=== PATIENT | female | born 1945 | race Caucasian/White ===

== ENCOUNTER → 2016-05-17 | Day surgery (SDC) | payer OTHER, MEDICARE ==
[~2016-05-17] VITALS: Ht 170.2 cm; Wt 79.4 kg
--- NOTE | 2016-05-17 11:46 | Operative Report ---
Operative/Inv Procedure Report Surgery Date: 05/17/16 Name of Procedure: cytocele repair with mesh and urethral sling and cystoscopy Pre-Operative Diagnosis: cystocele grade 3-4 and occult stress incontinence Post-Operative Diagnosis: same Estimated Blood Loss: 200cc Surgeon/Therapeutic Program Worker: RADHA JERONIMO MD Anesthesia: laryngeal mask airway Implants: vaginal mesh Drains: 16fr tinoco Specimens: none Complications: none Condition: stable Operative Indication: cystocele grade 34 symptomatic and occult stres incontinence Operative/Procedure Note Note: This an operative dictation on patient Ashia Schulz. She is identified in the holding area and consented for cystocele repair with mesh and possible urethral sling and cystoscopy. The complications and possible risks with vaginal mesh were discussed in detail. Risks benefits and alternatives of the surgery were given and all questions were answered. Patient was taken to the operating placed on the operating table in supine position. Timeout was performed. Lower extremity SCDs were placed bilaterally and started. IV antibiotics were infused and LMA anesthesia was given. Placed in the dorsal lithotomy position and prepped and draped in the standard sterile fashion. Tinoco catheter was placed and the bladder was drained and the Tinoco was placed on the abdomen. The [place] retractor with 6 stays were then placed to allow for vaginal vault visualization. 1% lidocaine with epinephrine was infiltrated into the anterior vaginal wall. The vaginal melgoza were dissected free from the cystocele taking care not to injure the bladder. The dissection was bluntly taken down to the retropubic space to the sacrospinous ligament bilaterally. The Uterus then was then used to place the Prolene sutures to the sacrospinous ligament on the patient's right and left side. This was followed by 2 Prolene sutures at the arcus tendineus on the right and left side with the UO as well. The Restoril mesh was then placed through the Prolene sutures. The proximal and distal portions of the mesh were secured with 2-0 Vicryl sutures at the bladder neck and the cervix. The mesh was seen to be in good position. Surgicel was placed into the retropubic perineal patient's left and right side for residual oozing. Indeed methylene blue was then given at this time to check for the patency of the ureters. A cystoscopy was performed and the bladder was globally inspected. There were no abnormalities appreciated. The ureteral orifices were easily identified and blue efflux was seen emanating from both orifices with good force. The bladder was emptied with Tinoco was placed back into the bladder. The anterior vaginal wall was closed with 2-0 Vicryl suture running locking every third suture. Attention was then turned to the urethral sling portion of the case. With the bladder full it was checked to see if she did experience incontinence with a Cred maneuver. She did leak large amounts of urine. 1% lidocaine with epinephrine was infiltrated into the anterior vaginal wall suburethrally. Incision was made and the vaginal flaps are created taking care not to injure the urethra. Sharp and blunt dissection was carried out to the retropubic space. The UltraSling kit was then opened and the trochars that are provided was used to place the sling and the obturator fascia on the patient's right and left side. It was seen to be in a good tension-free manner and the Prolene suture was cut. It was copiously irrigated with bacitracin irrigation. Incision was closed with a running locking 3-0 Vicryl suture. Cystoscopy was performed again and there were no injuries to the bladder or the urethra. Tinoco catheter was placed back into the bladder and drained. There was no mesh was appreciated in the vaginal fornices. 2 inch vaginal packing was placed into the vaginal vault with bacitracin ointment. The sponge and needle count were correct at the end of the case. Findings: no mesh in bladder or urethra or vaginal fornices. Discharge Disposition: PACU
== END ==
LOC: STS 02:01
DX: N39.3 Stress incontinence (female) (male) (principal); N81.10 Cystocele, unspecified; I10 Essential (primary) hypertension
CPT/HCPCS: C1771; J0131; J0690; J2250; J2405